=== PATIENT | female | born 1980 | race Caucasian/White ===

== ENCOUNTER 2018-02-13 17:25 | Outpatient (REF) | payer BC, SELFPAY ==
[2018-02-13 19:40] LABS: Anion Gap 10.6 mmol/L (3-11); BUN 11 mg/dL (7-18); C-Reactive Protein 16.54 mg/dL (0.0-0.3); CO2 29.4 mmol/L (21.0-32.0); CREATININE 0.67 mg/dL (0.55-1.02); Calcium 8.7 mg/dL (8.5-10.1); Chloride 100 mmol/L (98-107); Glucose 93 mg/dL (70-100); Potassium 3.6 mmol/L (3.5-5.1); Sodium 140 mmol/L (136-145)
[2018-02-13 20:32] LABS: HCT 28.6 % (36.0-46.0); HGB 9.6 g/dL (12.0-15.5); Mean Corp. HGB Concentration 33.6 g/dL (32.0-36.0); Mean Corpuscular Hemoglobin 31.4 pg (27.0-33.0); Mean Corpuscular Volume 93.5 fL (80-95); Mean Platelet Volume 9.8 fL (8.0-11.0); Platelet Count 46 x1000/uL (130-400); RBC 3.06 m/cumm (4.00-5.20); RBC Distribution Width 15.1 % (11.7-14.6); White Blood Cell Count 4.47 k/cumm (4.4-10.8)
[2018-02-13 22:03] LABS: ESR 89 MM/HR (0-20)
== END 2018-02-13 17:45 ==
LOC: NCHCN 17:25
PROVIDERS: PCP Nurse Practitioner Family; Visit Provider Physician Assistant Medical
DX: R09.1 Pleurisy (principal); R07.89 Other chest pain; I10 Essential (primary) hypertension; I48.0 Paroxysmal atrial fibrillation; E78.5 Hyperlipidemia, unspecified; E11.9 Type 2 diabetes mellitus without complications
CPT/HCPCS: 80048; 85027; 85652; 86140

== ENCOUNTER 2018-02-14 15:29 | Outpatient (CLI) | payer BC, SELFPAY ==
[2018-02-14 16:41] LABS: Abs Immature Grans 0.25 k/cumm (0.0-0.09); HGB 9.5 g/dL (12.0-15.5); Mean Corp. HGB Concentration 33.9 g/dL (32.0-36.0); Mean Corpuscular Hemoglobin 31.5 pg (27.0-33.0); Mean Corpuscular Volume 92.7 fL (80-95); Mean Platelet Volume 9.4 fL (8.0-11.0); Platelet Count 47 x1000/uL (130-400); RBC 3.02 m/cumm (4.00-5.20); RBC Distribution Width 14.9 % (11.7-14.6); White Blood Cell Count 4.56 k/cumm (4.4-10.8)
[2018-02-14 16:47] LABS: Bilirubin Negative (Negative); Blood Small (Negative); Clarity Clear; Glucose Negative (Negative); Ketones Negative (Negative); Leukocyte Esterase Negative (Negative); Nitrite Negative (Negative); Specific Gravity <= 1.005 (1.005-1.025); Urobilinogen 0.2 EU/dL (Up TO 0.2)
[2018-02-14 18:47] LABS: Absolute Neutrophil Count 2.51 k/cumm (1.2-6.7)
[2018-02-14 18:48] LABS: Absolute Eosinophil Count 0.09 k/cumm (0.0-0.7); Absolute Monocyte Count 0.05 k/cumm (0.11-0.7); Atypical Lymphocytes % 4
[2018-02-14 18:49] LABS: Nucleated RBC 2 /100WBC
[2018-02-14 19:16] LABS: Bacteria Few HPF (Negative); C & S Indicated? No/Sq. Contamination; Casts Negative LPF (Negative); Crystals Negative HPF (Negative); Epithelial Cells Many HPF (Negative); Mucus Negative (Negative); Other Cells Rare Renal (Negative); RBC 0-2 (0-2); WBC 0-2 HPF (0-5)
[2018-02-14 19:41] LABS: Diff Comment Manual Differential; RBC Morphology Normal
[2018-02-15 10:59] LABS: dsDNA Ab, IgG <12.3 IU/mL (<30)
[2018-02-15 11:47] LABS: Syphilis Serology (RPR) Negative (Negative)
[2018-02-15 11:52] LABS: Lyme Ab w Rflx to Lyme Confirm Negative
[2018-02-15 12:23] LABS: Hepatitis C Ab w Rflx HCV PCR Negative (NEGAT)
[2018-02-15 12:52] LABS: Albumin 50.9 % (55.8-66.1)
[2018-02-15 13:04] LABS: HIV-1/2 Ag & Ab Screen Negative (NEGAT)
[2018-02-15 13:59] LABS: ANA Interpretation Negative (NEGAT)
[2018-02-15 20:25] LABS: Anaplasma phagocytophilum Negative (Negative); B. miyamotoi PCR Negative (Negative); Babesia divergens/MO-1 Negative (Negative); Babesia duncani Negative (Negative); Babesia microti Negative (Negative); Ehrlichia chaffeensis Negative (Negative); Ehrlichia ewingii/canis Negative (Negative); Ehrlichia muris eauclairensis Negative (Negative)
== END 2018-02-14 15:49 ==
PROVIDERS: PCP Nurse Practitioner Family; Visit Provider Physician Assistant Medical
DX: M32.9 Systemic lupus erythematosus, unspecified (principal); R09.1 Pleurisy; R07.89 Other chest pain; Z11.59 Encounter for screening for other viral diseases; Z11.4 Encounter for screening for human immunodeficiency virus [HIV]
CPT/HCPCS: 36415; 86803; 87389; 81003; 81015; 84165; 85025; 86038; 86225; 86592; 86618; 87798

== ENCOUNTER 2018-02-20 17:03 | Outpatient (CLI) | payer BC, SELFPAY ==
[2018-02-20 17:48] LABS: Reticulocyte 1.1 % (0.5-2.4)
[2018-02-20 18:18] LABS: ALT 33 U/L (12-78); AST 11 U/L (15-37); Albumin 2.8 g/dL (3.4-5.0); Alkaline Phosphatase 95 U/L (46-116); Bilirubin, Total 0.3 mg/dL (0.2-1.0); Ferritin 408 ng/mL (8-388); Total Protein 6.1 g/dL (6.4-8.2); Vitamin B12 1114 pg/mL (193-986)
[2018-02-20 18:21] LABS: Iron 90 ug/dL (50-175); Total Iron Binding Capacity 208 ug/dL (250-450); Transferrin Sat 43 % (15-50)
[2018-02-20 18:34] LABS: Bilirubin, Direct 0.08 mg/dL (0.00-0.20)
[2018-02-20 18:54] LABS: Mono Screening Negative (Negative)
[2018-02-22 11:20] LABS: Haptoglobin 177 mg/dL (32-197)
== END 2018-02-20 17:23 ==
PROVIDERS: PCP Physician Assistant Medical; Visit Provider Physician Assistant Medical
DX: D64.9 Anemia, unspecified (principal); D69.6 Thrombocytopenia, unspecified
CPT/HCPCS: 80076; 82607; 82728; 83010; 83540; 83550; 85045; 86308

== ENCOUNTER 2018-02-24 10:21 | Emergency (ER) | payer BC, SELFPAY ==
[2018-02-24] VITALS (7 sets, daily range): BP systolic 115–128; BP diastolic 73–84; PULSE 78–90; RESP 16–27; TEMP 36.1–37.2; O2SAT 97–100
--- NOTE | 2018-02-24 10:59 | NUR.NOTE ---
Ray Vivar RN assuming care at this point.Nursing Note:
--- NOTE | 2018-02-24 11:01 | ED.GENADUL_ITS ---
Discharge Plan Disposition Patient Disposition: HOME Condition: Fair Discharge Details Chief Complaint: Nk/Back Pain Clinical Impression: Inflammatory process Primary Care Provider: Hansel Cassidy V ED Provider: Janeth Vivar Home Meds and New Rx's Prescriptions: New prednisone 20 mg tablet 20 mg PO DAILY Qty: 7 RF: 0 oxycodone 5 mg tablet 5 mg PO Q4H PRN (Reason: pain) Qty: 10 RF: 0 Discontinued Prednisone Taper RF: 0 Discharge Instructions Instructions: Oxycodone, Rapid Release (By mouth) Additional Instructions: Encourage hydration. Tylenol and/or Ibuprofen as needed for discomfort. You may take 1000mg of Tylenol four times daily as needed, 600mg of Ibuprofen four times daily as needed for discomfort. Take Oxycodone as prescribed for discomfort. Take only as prescribed, keep this medication in a safe place. Please increase your Prednisone as prescribed, stop your current taper. Please follow up with hematology on Monday, if you do not hear from them by 10AM on Monday, please call the office. If you develop shortness of breath, chest pain, fevers/chills, inability to stay hydrated or other new/worsening symptoms please seek care urgently once again. Referrals: Hansel Cassidy V [Primary Care Provider] - Discharge Data Discharge Date/Time-TO BE ENTERED AT DEPARTURE: 02/24/18 16:16 Medical Decision Making Patient is a 37-year-old female presenting today with primary concern for diffuse pain. Patient has been evaluated by her primary care for the past 6 months for increased fatigue, shortness of breath. Reports that in these episodes, she has not had discomfort quite like this. Patient has had extensive workups. Was seen by hematology oncology at [facility] yesterday, I will obtain and review these notes. By her primary care, patient has been tested for tickborne illness, hepatitis and syphilis, HIV, all of her tests being negative. 1 week ago, patient's hemoglobin was noted to be 9.5 with normal morphology of the RBC. Her ESR on 1023 was elevated to 89. She reports the pain is primarily in her back and indicates a fairly diffuse area of her lower back. She does endorse some mild chest discomfort. States that the chest discomfort has been fairly chronic. Has been evaluated for PE historically with CT which is found to be negative. She denies any headache, fever, nausea, vomiting or diarrhea. States she has been having muscle spasms. Feels that the pain she is being seen in the back is primarily spasmodic. She is currently on a prednisone taper as this is worked well for him historically. EKG reviewed by Dr. Beckwith. Normal sinus rhythm with a rate of 79. No acute ischemic changes Patient appears quite uncomfortable on exam. Frequently moving and unable to hold still. Reports the pain is primarily in the lower back. Will give patient pain medication. Reviewed notes from [facility] yesterday at which time patient was seen by hematology oncology. Reviewed laboratory evaluation. Hemoglobin yesterday was 7.4. Platelets 36. Sed rate 74. CRP 104. Hematology relationship specialist to evaluate her yesterday had noted anemia and thrombocytopenia with labs pending. There are sewing questioning of her recent steroid taper, which patient is still on, may improve her counts. Primarily concerned for inflammatory process given the ESR and patient's response to prednisone. Patient was evaluated by pulmonology yesterday but no note is completed as of yet. Patient also underwent PFTs but again, I am unable to find any results. They advised that pending the laboratory evaluation, they would likely recommend bone marrow biopsy. Consulted with Hematology at [facility], spoke with Dr. Shane and reviewed patient's history and presenting symptoms. I did question the possibility of sicle cell but he advised that this would be unusual given the patient's age. He did agree with my concern for cardiac process given the patient's discomfort. Did advise that this is likely inflammatory process but is unusual to have this amount of pain. This may something more about possible metabolic disorders but again, advised that this is not some that will be diagnosed through the ER, feels that, as was recommended yesterday, she undergo bone marrow biopsy. He will ask primary team to call patient Monday to schedule appointment this week. He has asked that I increase the patient's prednisone to 20 mg daily. He advised that they will take over the end of the taper. Patient is at the end of the taper currently. Laboratory evaluation significant for hemoglobin 7.2, hematocrit of 20.8 and platelet count of 30. This is fairly unchanged from previous when she was evaluated by [facility]. Discussed findings and recommendation from [facility]. At this point, she is much improved. Reprots that pain is improved. Appears to be resting comfortably in bed. She will be given first dose of Prednisone here. Will prescribed Oxycodone. Reviewed PDMP. Patient and I discussed risks/benefits of this. Discussed safety of narcotics. Encouraged hydration. She will contact [facility] Monday to set up apointment as they requested. She was given strict return precautions. All of her questions and concerns were addressed, she is in agreement with this plan. HPI General Mode of arrival: ambulatory . Date/Time Provider Initiated Documentation: 02/24/18 10:36 . Limitations to Documentation: no limitations . Information obtained by: patient . History of Present Illness 37 year old F presents to the emergency department with the chief complaint of diffuse pain, described as severe, with intensity rated at 8. Quality is described as aching, and is localized to the chest, back and pelvis. Patient started experiencing this hour(s) and it has been constant. No relieving factors improve symptom(s), No exacerbating factors reported . Patient notes chest pain, fever/chills (reports she has felt warm), loss of appetite, malaise and shortness of breath (endorses SOB for the past several months); denies cough, headaches, nausea/vomiting, rash, syncope and weakness. Patient did receive the following treatments prior to arrival, NSAID Related Data Home Medications Medication Instructions Recorded Confirmed oxycodone 5 mg PO Q4H PRN #10 tab 02/24/18 prednisone 20 mg PO DAILY #7 tab 02/24/18 Previous Rx's Medication Instructions Recorded oxycodone 5 mg PO Q4H PRN #10 tab 02/24/18 prednisone 20 mg PO DAILY #7 tab 02/24/18 Allergies Allergy/AdvReac Type Severity Reaction Status Date / Time No Known Drug Allergies Allergy Unverified 02/24/18 11:06 General Stated Complaint: Nk/Back Pain EMILY: 3 Review of Systems Constitutional Reports as per HPI Eyes Denies change in vision and Denies eye discharge Cardiovascular Reports as per HPI, Reports chest pain, Denies palpitations, Reports dyspnea and Reports dyspnea on exertion Respiratory Denies chest congestion, Denies cough, Reports dyspnea and Reports dyspnea on exertion Gastrointestinal Reports as per HPI Genitourinary Reports system reviewed and no additional complaints, except as docu (states she has noted darkening in her urine) Musculoskeletal Reports as per HPI, Denies abnormal gait, Reports back pain, Reports myalgias, Denies joint swelling, Reports muscle cramps, Denies numbness and Denies tingling Integumentary/Breasts Reports as per HPI and Denies rash Neurologic Reports as per HPI, Denies abnormal gait, Denies numbness and Denies tingling Endocrine Denies palpitations PFSH Family History Mother Liver cancer Diabetes Father Pancreatic cancer Diabetes Heart disease Social History Smoking/Tobacco Use Status: Never Exam Const General: cooperative, healthy appearing, uncomfortable (patient is moving frequently, appears unable to become comfortable), well developed and well groomed Nutritional Appearance: average body habitus and well nourished Orientation: alert, awake and oriented x3 HENMT Head: normal to inspection, normocephalic and atraumatic Ears: hearing grossly normal bilaterally, external ears normal and TM's normal bilaterally General nose exam: external nose normal and nares normal Face and sinus: normal facial exam Mouth: oral mucosae normal, lip normal and tongue normal Throat: posterior oropharynx normal Eyes General: appearance normal, both eyes and all related structures Alignment and Position: alignment normal Periorbital: periorbital findings normal Eyelids: eyelids normal Conjunctivae: conjunctivae normal Pupils: PERRL EOM: EOM intact bilaterally Neck Neck: normal visual inspection, full ROM, no lymphadenopathy, no meningeal signs and trachea midline Resp Effort & Inspection: normal respiratory effort, able to speak in complete sentences and no respiratory distress Auscultation: clear to auscultation bilaterally, no rales, no rhonchi and no wheezes Cardio Rate: regular rate Rhythm: regular rhythm Heart Sounds: S1 normal and S2 normal GI Inspection: normal to inspection and non-distended Palpation: soft, no hepatosplenomegaly, no aortic enlargement, not firm, no guarding, no masses, not rigid and nontender Auscultation: normal bowel sounds Back/Spine/Pelvis Back: no CVA tenderness Cervical Spine: normal cervical lordosis and cervical ROM normal Thoracic/Lumbar Spine: No thoracic and lumbar spine normal to inspection ( patient has fairly diffuse discomfort across the lower back, no focal area of discomfort. No skin changes) Skin General skin exam: no rashes or lesions noted Trauma: no lacerations or abrasions Neuro General: alert, awake and oriented x3 Cranial Nerves: CN's II-XI intact bilaterally Cognition: normal cognition Speech: speech normal Gait: normal gait Motor: muscle tone normal throughout Sensory Exam: no sensory deficits noted Extrem General: normal to inspection, full ROM, normal capillary refill, no joint enlargement, no pedal edema, no calf tenderness and normal gait Psych Appearance: grossly normal and well kempt Mental Status: mental status grossly normal Speech and Movement: speech and movement normal Course Vital Signs Temperature 36.1 C L 02/24/18 10:28 Pulse 88 02/24/18 10:28 Respiratory Rate 16 02/24/18 10:28 Blood Pressure 115/84 02/24/18 10:28 Pulse Oximetry 100 02/24/18 10:28 Temperature 36.1 C L 02/24/18 10:28 Temperature Source Skin 02/24/18 10:28 Pulse 88 02/24/18 10:28 Respiratory Rate 16 02/24/18 10:28 Respiratory Effort 02/24/18 10:28 Blood Pressure 115/84 02/24/18 10:28 Blood Pressure Position Supine 02/24/18 10:28 Pulse Oximetry 100 02/24/18 10:28 Oxygen Delivery Method Room Air 02/24/18 10:28 Oxygen Flow Rate 0 02/24/18 10:28 Pain Level 9 02/24/18 10:28
--- NOTE | 2018-02-24 11:01 | NUR.NOTE ---
Patient mildly restless from pain. Call robles hooked to siderail, reminded to use if needed. Reminded to be aware of body position on stretcher. Nursing Note:
[2018-02-24] MEDS: oxyCODONE 5 MG TAB PO (11:07)
--- NOTE | 2018-02-24 11:09 | NUR.NOTE ---
Currently declining IV and labs, They've done so many recently, what's the reason? Nursing Note:
[2018-02-24] MEDS: Normal Saline 1,000 ML 1000 ML IV (12:20)
[2018-02-24 12:25] LABS: HGB 7.2 g/dL (12.0-15.5); Mean Corp. HGB Concentration 34.6 g/dL (32.0-36.0); Mean Corpuscular Volume 92.4 fL (80-95); Mean Platelet Volume 9.8 fL (8.0-11.0); RBC 2.25 m/cumm (4.00-5.20); RBC Distribution Width 15.3 % (11.7-14.6); White Blood Cell Count 4.14 k/cumm (4.4-10.8)
[2018-02-24 12:36] LABS: ALT 26 U/L (12-78); AST 41 U/L (15-37); Alkaline Phosphatase 88 U/L (46-116); BUN 9 mg/dL (7-18); Bilirubin, Total 0.3 mg/dL (0.2-1.0); CREATININE 0.78 mg/dL (0.55-1.02); Calcium 8.7 mg/dL (8.5-10.1); Chloride 99 mmol/L (98-107); Glucose 125 mg/dL (70-100); Potassium 3.9 mmol/L (3.5-5.1); Sodium 137 mmol/L (136-145); TSH (W/Ref FT4) 1.55 uIU/mL (0.358-3.74); Total Protein 6.3 g/dL (6.4-8.2)
[2018-02-24 12:37] LABS: Troponin I < 0.02 ng/mL (0.00-0.06)
[2018-02-24 12:56] LABS: HCT 20.8 % (36.0-46.0)
[2018-02-24 12:58] LABS: Platelet Count 30 x1000/uL (130-400)
[2018-02-24 12:59] LABS: Absolute Lymphocyte Count 1.61 k/cumm (1.2-3.4); Absolute Neutrophil Count 2.36 k/cumm (1.2-6.7); Atypical Lymphocytes % 4
[2018-02-24 13:01] LABS: Absolute Eosinophil Count 0.04 k/cumm (0.0-0.7)
[2018-02-24 13:02] LABS: Nucleated RBC 2 /100WBC
[2018-02-24 13:03] LABS: Diff Comment Manual Differential
[2018-02-24 13:06] LABS: Microcytosis 1+; Spherocytes 1+
[2018-02-24 13:45] LABS: ESR 76 MM/HR (0-20)
[2018-02-24] MEDS: predniSONE 20 MG TAB PO (13:58)
--- NOTE | 2018-02-24 15:32 | NUR.NOTE ---
Drank full cup OJ and had 2 packs cleo crackers ~1330Nursing Note:
[2018-02-24] MEDS: HYDROmorphone 2 MG/ML VIAL 1 MG IVP (15:33)
== END 2018-02-24 16:16 | disposition home or self-care (01) ==
PROVIDERS: Emergency Provider Physician Assistant; PCP Physician Assistant Medical
DX: G72.49 Other inflammatory and immune myopathies, not elsewhere classified (principal); R07.9 Chest pain, unspecified
CPT/HCPCS: 36415; 80053; 85652; 86850; 86900; 86901; 93005; 96361; 96374; 96376; 99285; 83735; 84443; 84484; 85025; 93010; J7512

== ENCOUNTER 2018-03-12 08:53 | Outpatient (CLI) | payer BC, SELFPAY ==
[2018-03-12 09:23] LABS: HGB 7.4 g/dL (12.0-15.5); Mean Corp. HGB Concentration 32.2 g/dL (32.0-36.0); Mean Corpuscular Hemoglobin 30.3 pg (27.0-33.0); Mean Corpuscular Volume 94.3 fL (80-95); Mean Platelet Volume 10.7 fL (8.0-11.0); RBC 2.44 m/cumm (4.00-5.20); RBC Distribution Width 16.2 % (11.7-14.6); White Blood Cell Count 2.52 k/cumm (4.4-10.8)
[2018-03-12 10:19] LABS: Absolute Lymphocyte Count 1.31 k/cumm (1.2-3.4); Absolute Monocyte Count 0.08 k/cumm (0.11-0.7); Absolute Neutrophil Count 1.13 k/cumm (1.2-6.7); Anisocytosis 2+; Diff Comment Manual Differential; Nucleated RBC 3 /100WBC; Platelet Count 21 x1000/uL (130-400)
[2018-03-12 10:20] LABS: Macrocytosis 1+; Microcytosis 1+; Poikilocytes 2+; Polychromasia Present
== END 2018-03-12 09:13 ==
PROVIDERS: PCP Physician Assistant Medical; Visit Provider Internal Medicine
DX: D61.818 Other pancytopenia (principal)
CPT/HCPCS: 36415; 86850; 86900; 86901; 85025; 86870